=== PATIENT | male | born 1955 | race Caucasian/White ===

== ENCOUNTER 2025-06-26 07:01 | Day surgery (SDC) | payer MEDICARE ==
--- NOTE | 2025-06-20 11:01 | ELECTROCARDIOGRAPH REPORT ---
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 ANDIE Gomez Measurements Intervals [place] Rate: 68 P: 2 SC: 158 QRS: 58 QRSD: 96 T: 25 QT: 387 QTc: 412 Interpretive Statements Sinus rhythm Minimal ST elevation, anterior leads Electronically Signed On 06-20-2025 17:34:[address] ANDIE Gomez Please click the below link to view image of tracing.
[2025-06-20 11:06] LABS: MEAN PLATELET VOLUME 7.5 FL (7.4-10.4); PRE OP HEMATOCRIT 51.7 % (42.0-52.0); PRE OP HEMOGLOBIN 17.1 g/dL (14.0-17.9); PRE OP PLATELET COUNT 258 X10'3 (140-440); PRE OP WHITE BLOOD COUNT 7.9 10'3 (4.8-10.8); RED CELL DISTRIBUTION WIDTH 13.6 % (11.5-14.5)
[2025-06-20 12:17] LABS: CREATININE 1.00 MG/DL (0.60-1.10); PRE OP ALT 38 U/L (30-65); PRE OP ANION GAP 4 (8-16); PRE OP AST 20 U/L (10-37); PRE OP BILIRUB, TOTAL 0.5 MG/DL (0.0-1.0); PRE OP GLUCOSE 98 MG/DL (70-104); PRE OP POTASSIUM 4.3 MMOL/L (3.4-5.1); PRE OP SODIUM 139 MMOL/L (135-145); TOTAL CARBON DIOXIDE 30.7 MMOL/L (24-32); eGFR 74 ML/MIN
[~2025-06-26] VITALS: Ht 162.6 cm; Wt 79.7 kg
[2025-06-26] VITALS (10 sets, daily range): BP systolic 126–169; BP diastolic 69–93; PULSE 16–83; RESP 12–16; TEMP 97.7–97.9; O2SAT 85–100
[2025-06-26] MEDS: ceFAZolin 2gm/dext,iso 50mL 50 ML IV ONE (05:30)
[~2025-06-26 07:01] MED LIST: ATOR40TA72 PO; BUPIVAcaine/PF 2.5mg/ml (0.25%) 10ml vial ONE; GABA-1405 PO; LIDOcaine 2% (20mg/ml) 5ml vial ONE; LISI10TA27 PO; OMEP40CA21 PO; TEST200V22 IM; VALA100031 PO
[2025-06-26] MEDS: ringers solution, lacted 1,000 ML IV SCH (07:36)
[2025-06-26] MEDS ORDERED: ringers solution, lacted 1,000 ML IV SCH (08:35)
[2025-06-26] MEDS ORDERED: HYDROmorphone/PF 0.2 MG/ML SYRINGE IV PRN (08:35)
[2025-06-26] MEDS ORDERED: hydrALAZINE 20mg/ml inj. IV PRN (08:35)
[2025-06-26] MEDS ORDERED: ondansetron/PF 4mg/2ml inj IV PRN (08:35)
[2025-06-26] MEDS ORDERED: fentaNYL/PF 50MCG/1 ML 2ML syringe ONE (08:59)
[2025-06-26] MEDS ORDERED: midazolam 1 mg/ML 2ml injection ONE (08:59)
[2025-06-26] MEDS ORDERED: propofol inj 20 ML IV ONE ×2 (09:09→09:36)
[2025-06-26] MEDS ORDERED: LIDOcaine 0.5% (5mg/ml) 50ml vial ONE (09:09)
[2025-06-26] MEDS ORDERED: dexamethasone sod phosphate 4mg/ml inj. ONE (09:12)
[2025-06-26] MEDS ORDERED: ondansetron/PF 4mg/2ml inj ONE (09:12)
[2025-06-26] MEDS: BUPIVAcaine/PF 2.5mg/ml (0.25%) 10ml vial IJ ONE (09:29)
[2025-06-26] MEDS: morphine 4 MG/ML inj SYRINge IV PRN (10:21)
[2025-06-26] MEDS: HYDROcodone/acetaminophen 5mg/325mg tablet PO ONE (10:26)
[2025-06-26] MEDS: HYDROmorphone/PF 0.2 MG/ML SYRINGE IV PRN (10:27)
[2025-06-26] MEDS: acetaminophen 1,000mg/100ml IV 100 ML IV PRN (10:38)
[2025-06-26] MEDS: labetalol 20mg/4ml (5mg/ml) syringe IV PRN (10:45)
--- NOTE | 2025-06-26 12:47 | OPERATIVE REPORT ---
Operative Report Providers to ~ Date of Procedure: Jun 26, 2025 Pre-Operative Diagnosis: left thumb arthritis Post-Operative Diagnosis SAME as PRE-Op Procedure Performed Left thumb ligament reconstruction tendon interposition arthroplasty Surgeon: Rodger Flores MD Customer Account Manager None Anesthesiologist: Nadira Gallardo Type of Anesthesia: Regional Findings: Estimated Blood Loss: None Specimen Removed: None Description of Procedure: The patient is a 69 year-old with left thumb carpometacarpal joint pain and arthritis refractory to nonsurgical treatment. Surgery is indicated to relieve symptoms after failure of conservative treatment. Risks and benefits and potential complications were discussed with the patient. Some of the potential complications include but are not limited to infection, bleeding, nerve or vessel damage, numbness over the site of the incision. Thumb stiffness and incomplete relief of pain. The patient agrees to proceed. After the block was given in the operating room proper timeout procedure was observed. The arm was then prepped and draped in the usual manner. The first incision was made over the flexor carpi radialis tendon in the forearm, 8cm proximal to the wrist crease. The tendon sheath was opened, and the tendon was transected at the musculotendinous junction. The wound was closed with Monocryl suture. An incision was made over the dorsal thumb metacarpal, curving proximally toward the wrist crease. Cutaneous nerves were mobilized, and an arthrotomy was made around the trapezium, which was then removed using the sagittal saw and the rongeur. A diagonal tunnel was made in the metacarpal using the 4mm round inocente. The FCR tendon was pulled subcutaneously into the thumb wound, leaving it attached distally to the base of the second metacarpal. The proximal end of the tendon was passed through the bone tunnel, pulled tight, and sutured to itself and the periosteum using 4-0 Fiberwire suture. This completed the SUSPENSIONPLASTY portion of the procedure, the remainder of the tendon was folded upon itself and sutured into the space created by the trapezium excision using a deep capsular stitch. This completed the tendon INTERPOSITION portion of the procedure The capsule was closed over the graft with Vicryl suture, and the skin with Monocryl and Steri-strips. Marcaine was injected, and a sterile dressing was applied, along with a plaster thumb spica splint. The tourniquet was removed and the hand perfused well. The patient was taken to the recovery room in stable condition. Sponge and needle counts were correct Counts repoted as correct: Yes RODGER FLORES Jr., MD Jun 26, 2025 12:47
== END 2025-06-26 11:15 | disposition home or self-care (01) ==
LOC: PAS 07:01
PROVIDERS: ATTEND Orthopaedic Surgery Hand Surgery
DX: M18.12 Unilateral primary osteoarthritis of first carpometacarpal joint, left hand (principal); M79.642 Pain in left hand; E78.5 Hyperlipidemia, unspecified; F32.A Depression, unspecified; I10 Essential (primary) hypertension; F10.10 Alcohol abuse, uncomplicated; K21.9 Gastro-esophageal reflux disease without esophagitis; Z98.890 Other specified postprocedural states; Z98.1 Arthrodesis status; Z79.899 Other long term (current) drug therapy; Y90.9 Presence of alcohol in blood, level not specified
CPT/HCPCS: 25448; 36415; 80053; 82948; 85025; 93005; A4215; A4618; A6449; A7000; J0131; J1100; J1171; J2003; J2250; J2270; J2405; J2704; J3010; J3490; J7030; J7120; Z7506; Z7508; Z7512; Z7610